=== PATIENT | female | born 1985 | race Caucasian/White ===

== ENCOUNTER 2016-07-01 21:33 | Emergency (ER) | payer MEDICAID ==
[~2016-07-01] VITALS: Ht 151.8 cm; Wt 92.4 kg
[~2016-07-01 21:33] MED LIST: ACET-2723 PO; ASPI1TAB72 PO; BENZ200C36 PO; BUSP7.5T7 PO; CITA20TA9 PO; MELA3TAB30 PO; TERB250T4 PO; VARE0.5T PO
--- OUTSIDE RECORDS SUMMARY | 2016-07-01 21:37 | XMS REPORT | Continuity of Care Document ---
Author Author [facility] Organization [facility] Address Unknown Phone Unavailable Care Team Providers Care Regulatory Affairs Associate Name Role Phone SHASHANK JAMISON DO Primary Care Physician [phone] Insurance Providers Guarantor Romero Springer Dior Address [address] [place] [address] Email [email or web address] Payer [facility] Community Plan Policy Number [id number] Subscriber's Name Romero Springer Relationship 18 Self Effective Date 16 Expiration Date 16 Advance Directives Directive Response Recorded Date/Time Ordered Resuscitation Status Full Code 03/04/16 2:15pm Resuscitation Documents on File No 03/05/16 9:43am DPOA for Healthcare Only No 03/05/16 9:43am Living Will No 03/05/16 9:43am Problems Active Problems Medical Problem Onset Date Status Abdominal pain Unknown Acute Medications Current Home Medications Medication Dose Units Route Directions Days Qty Instructions Start Date Acetaminophen (Tylenol Extra Strength) 500 Mg Tablet 1-2 Tab Oral Every 6 Hours as needed for Pain/Fever 03/04/16 Aspirin/Acetaminophen/Caffeine (Excedrin Extra Strength Caplet) 1 Each Tablet 2 Tab Oral As Needed 09/28/13 Benzonatate 200 Mg Capsule 1 Cap Oral Three Times A Day as needed for Cough DO NOT BITE, CHEW, OR CRUSH 03/04/16 Buspirone Hcl 7.5 Mg Tablet 1 Tab Oral Twice A Day 03/04/16 Citalopram Hydrobromide (Citalopram Hbr) 20 Mg Tablet 40 Mg Oral Daily 09/28/13 Melatonin 3 Mg Tablet 1 Tab Oral Bedtime 30 Tablet 03/04/16 Terbinafine Hcl (Lamisil) 250 Mg Tablet 1 Tab Oral Daily 03/04/16 Varenicline Tartrate (Chantix) 0.5 Mg Tablet 1 Tab Oral Twice A Day 03/04/16 Past Home Medications Medication Directions Ordered Status Albuterol 17 Gm Aerosol, 09/22/08 Discontinued Cephalexin Monohydrate (Keflex) 250 Mg Capsule, 09/22/08 Discontinued Fluoxetine Hcl (Prozac) 20 Mg Capsule, 20 Mg Oral 05/21/09 Discontinued Vits W-Ca,Fe,Fa(<1MG) ( Vitamins) 1 Tab Tablet, 1 Tab Oral 05/21/09 Discontinued Social History Social History Problem Response Recorded Date/Time Onset Date Status Reason for Hospitalization colonoscopy, hemerrhoid banding 03/05/2016 12: 25pm Not Applicable Not Applicable Chewing Tobacco Status No 05/24/2013 10:45pm Not Applicable Not Applicable Hx Substance Use No 03/05/2016 9:53am Not Applicable Not Applicable Hx Alcohol Use No 03/05/2016 9:53am Not Applicable Not Applicable Has the pt used tobacco in the last 12 months Yes 03/05/2016 9:53am Not Applicable Not Applicable Query Response Start Date Stop Date Smoking Status Current every day smoker Hospital Discharge Instructions Instructions: Care Instructions: I was in the hospital because (patient own words): COLONOSCOPY Discharge Diet: As Tolerated Discharge Activity: Do NOT drive today Follow Up Appointments: Follow up with Dr. Valderrama as needed. Pending Lab / Results: Will be notified Patient Instructions: If biopsies performed during colonoscopy, results/recommendations will be mailed in about 2-3 weeks. If biopsies performed during EGD, results/recommendations will be mailed in about 1 week. Expected Signs/Symptoms: None Notify Physician If: Call physician if temperature is GREATER than 101.5, severe abdominal pain or severe rectal bleeding. During Business Hours:: Call [phone] After Business Hours:: Call [phone] (hospital) Pain Management/Treatment: Call Dr. Valderrama if increasing abdominal pain Wound/Incision Care: N/A Condition at time of discharge: Good Plan of Care Discharge Date 03/05/16 12:40pm Instructions/Education Provided [facility] Prescriptions See Medication Section Functional Status Query Response Date Recorded Ability to complete ADL's impeded by No change March 05, 2016 9:43am Allergies, Adverse Reactions, Alerts Allergen Type Severity Reaction Status Last Updated No Known Drug Allergies Allergy Unknown Active 05/24/13 Immunizations Query Response on File Recorded Date/Time Hx Influenza Vaccination Y NOV 2015 03/05/16 9:53am Hx Pneumococcal Vaccination No 03/05/16 9:53am Hx Influenza Vaccination Y NOV 2015 03/05/16 9:53am Vital Signs Acute Vital Signs Vital Response Date/Time Temperature (Fahrenheit) 97.8 deg F (96.8 - 99.1) 03/05/2016 11:56am Temperature (Calculated Celsius) 36.90403 degrees C (36.0 - 37.3) 03/05/2016 11:56am Temperature Source Temporal 03/05/2016 11:56am Pulse Rate (adult) 68 bpm (60 - 100) 03/05/2016 12:35pm Respiratory Rate 20 breaths/min (10 - 20) 03/05/2016 12:35pm O2 Sat by Pulse Oximetry 98 % (90 - 100) 03/05/2016 12:35pm Oxygen Delivery Method Room Air 03/05/2016 12:35pm Blood Pressure 121/88 mm Hg 03/05/2016 12:35pm Blood Pressure Source Automatic Cuff 03/05/2016 12:35pm Height (Feet) 4 feet 03/05/2016 9:20am Height (Inches) 11.00 inches 03/05/2016 9:20am Weight (Kilograms) 88.800 kg 03/05/2016 9:20am Body Mass Index (BMI) 39.5 03/05/2016 9:20am Results No known relevant diagnostic tests, laboratory data and/or discharge summary. Procedures Procedure Status Date Provider(s) Colonoscopy with polypectomy and biopsy Completed 03/05/16 AURORA VALDERRAMA MD, FACS, CWS Encounters Encounter Location Arrival/Admit Date Discharge/Depart Date Attending Provider Departed [facility] 03/05/16 8:51am 03/05/16 12 :40pm AURORA VALDERRAMA FACSS
--- OUTSIDE RECORDS SUMMARY | 2016-07-01 21:37 | XMS REPORT | Referral Summary ---
Author Author [facility] Organization [facility] Address Unknown Phone Unavailable Care Team Providers Care Sports Broadcasting Internship Name Role Phone George Degroot Primary Care Physician [phone] Encounter VC Date(s): 03/16/16 - 03/16/16 [facility] [address] [place] [address] Discharge Disposition: 01-Home or Self Care Attending Physician: Kel Lieberman APRN Admitting Physician: Kel Lieberman APRN Vital Signs Most recent to 1 oldest [Reference Range]: Temperature Tympanic 36.9 degC [36.6-38.1 degC] (03/16/16 4:01 PM) Peripheral Pulse 77 bpm Rate [60-100 bpm] (03/16/16 4:01 PM) Respiratory Rate 16 br/min [14-20 br/min] (03/16/16 4:01 PM) Blood Pressure 110/70 mmHg [90-140/60-90 mmHg] (03/16/16 4:01 PM) SpO2 97 % (03/16/16 4:01 PM) Problem List Condition Effective Dates Status Health Status Informant Anxiety(Confirmed) Resolved Pap 07/23/06 Active Smear(Confirmed)1 Carpal tunnel Active syndrome(Confirmed) Depression(Confirmed Resolved ) Gall bladder Resolved disease(Confirmed) High Resolved cholesterol(Confirme d) Irritable bowel Resolved disease(Confirmed) Migraine Resolved headache(Confirmed) Obesity(Confirmed) Active patient 1See Conversion Document Allergies, Adverse Reactions, Alerts No Known Medication Allergies Medications busPIRone 7.5 mg oral tablet 7.5 mg 1 tabs, Oral, BID, 0 Refill(s) Start Date: 02/28/16 Status: Ordered CeleXA 20 mg oral tablet 40 mg 2 tabs, Oral, Daily, 1 tab daily for 1 week then increase to 2 tabs daily , # 180 tabs, 1 Refill(s), Pharmacy: [facility] #[id number], 2 tabs Oral Daily ,x90 days,Instr:1 tab daily for 1 week then increase to 2 tabs daily Start Date: 03/14/15 Stop Date: 09/10/15 Status: Ordered Chantix Starter Pack 0.5 mg-1 mg oral tablet 1 tabs, Oral, BID, as directed on package labeling, # 53 tabs, 1 Refill(s), Pharmacy: [facility] #[id number] Start Date: 01/30/16 Status: Ordered Excedrin Extra Strength 1 tabs, Oral, q6hr, Pain, 0 Refill(s) Start Date: 07/28/13 Status: Ordered LamISIL 1 tabs, Oral, Daily, 0 Refill(s) Start Date: 02/28/16 Status: Ordered melatonin 3 mg oral tablet 3 mg 1 tabs, Oral, Bedtime (once a day), as needed for insomnia, # 60 tabs, 0 Refill(s) Start Date: 02/28/16 Status: Ordered predniSONE 10 mg oral tablet See Instructions, 3 tabs PO daily x3 days, 2 tabs PO daily x3 days, 1 tabs Oral Daily x3 days with food, # 18 tabs, 0 Refill(s), Pharmacy: [facility] # [id number], 3 tabs PO daily x3 days, 2 tabs PO daily x3 days, 1 tabs Oral Daily x3 days with food Start Date: 03/16/16 Stop Date: 03/23/16 Status: Ordered Tylenol Extra Strength 500 mg, Oral, q6hr, as needed for pain, 0 Refill(s) Start Date: 07/28/13 Status: Ordered Results No data available for this section Immunizations Given and Recorded Vaccine Date Status Refusal Reason influenza virus vaccine, inactivated 10/31/15 Given Procedures Procedure Date Related Diagnosis Body Site Colonoscopy and biopsy of colon1 03/05/16 Hx of tubal ligation 2015 Caesarean section 2010 Cholecystectomy 2008 Pap Smear2 07/23/06 1Biopsies negative for colitis. Banded internal hemorrhoid which is the likely cause of bleeding. Repeat colonoscopy at age 50 2See Conversion Document. Social History Social History Type Response Smoking Status Current some day smoker; Type: Cigarettes; Tobacco use per day: Less than Pack Assessment and Plan No data available for this section
--- OUTSIDE RECORDS SUMMARY | 2016-07-01 21:37 | XMS REPORT | Referral Summary ---
Author Author [facility] Organization [facility] Address Unknown Phone Unavailable Care Team Providers Care Marketing Automation Specialist Name Role Phone George Degroot Primary Care Physician [phone] Encounter VC Date(s): 02/28/16 - 02/28/16 [facility] [address] [place] [address] [place] [address] Discharge Diagnosis: Blood in stool Discharge Diagnosis: Rectal bleeding Discharge Disposition: 01-Home or Self Care Attending Physician: Darrius Guthrie MD Admitting Physician: Darrius Guthrie MD Referring Physician: George Degroot DO Vital Signs Most recent to 1 oldest [Reference Range]: Peripheral Pulse 76 bpm Rate [60-100 bpm] (02/28/16 1:34 PM) Respiratory Rate 18 br/min [14-20 br/min] (02/28/16 1:34 PM) Blood Pressure 108/66 mmHg [90-140/60-90 mmHg] (02/28/16 1:34 PM) SpO2 98 % (02/28/16 1:34 PM) Problem List Condition Effective Dates Status [...] , # 180 tabs, 1 Refill(s), Pharmacy: [facility] #[id number], 2 tabs Oral Daily ,x90 days,Instr:1 tab daily for 1 week then increase to 2 tabs daily Start Date: 03/14/15 Stop Date: 09/10/15 Status: Ordered Chantix Starter Pack 0.5 mg-1 mg oral tablet 1 tabs, Oral, BID, as directed on package labeling, # 53 tabs, 1 Refill(s), Pharmacy: [facility] #[id number] Start Date: 01/30/16 Status: Ordered Excedrin Extra Strength 1 tabs, Oral, q6hr, Pain, 0 Refill(s) Start Date: 07/28/13 Status: Ordered LamISIL 1 tabs, Oral, Daily, 0 Refill(s) Start Date: 02/28/16 Status: Ordered melatonin 3 mg oral tablet 3 mg 1 tabs, Oral, Bedtime (once a day), as needed for insomnia, # 60 tabs, 0 Refill(s) Start Date: 02/28/16 Status: Ordered Tessalon 200 mg oral capsule 200 mg 1 caps, Oral, TID, X 10 days, # 30 caps, 0 Refill(s), Pharmacy: [facility] #[id number], 1 caps Oral TID,x10 days Start Date: 02/20/16 Stop Date: 03/01/16 Status: Ordered Tylenol Extra Strength 500 mg, Oral, q6hr, as needed for pain, 0 Refill(s) Start Date: 07/28/13 Status: Ordered Results No data available for this section Immunizations Given and Recorded Vaccine Date Status Refusal Reason influenza virus vaccine, inactivated 10/31/15 Given Procedures Procedure Date Related Diagnosis Body Site Hx of tubal ligation 2015 Caesarean section 2010 Cholecystectomy 2008 Pap Smear1 07/23/06 1See Conversion Document. Social History Social History Type Response Smoking Status Current some day smoker; Type: Cigarettes; Tobacco use per day: Less than Pack Assessment and Plan Extracted from: Title: Ambulatory Patient Education Author: Darrius Guthrie MD Date: Family Medicine Gastrointestinal Bleeding Gastrointestinal (GI) bleeding means there is bleeding somewhere along the digestive tract, between the mouth and anus. CAUSES There are many different problems that can cause GI bleeding. Possible causes include: Esophagitis. This is inflammation, irritation, or swelling of the esophagus. Hemorrhoids.These are veins that are full of blood (engorged) in the rectum. They cause pain, inflammation, and may bleed. Anal fissures.These are areas of painful tearing which may bleed. They are often caused by passing hard stool. Diverticulosis.These are pouches that form on the colon over time, with age, and may bleed significantly. Diverticulitis.This is inflammation in areas with diverticulosis. It can cause pain, fever, and bloody stools, although bleeding is rare. Polyps and cancer. Colon cancer often starts out as precancerous polyps. Gastritis and ulcers.Bleeding from the upper gastrointestinal tract ( near the stomach) may travel through the intestines and produce black, sometimes tarry, often bad smelling stools. In certain cases, if the bleeding is fast enough, the stools may not be black, but red. This condition may be life -threatening. SYMPTOMS Vomiting bright red blood or material that looks like coffee grounds. Bloody, black, or tarry stools. DIAGNOSIS Your caregiver may diagnose your condition by taking your history and performing a physical exam. More tests may be needed, including: X-rays and other imaging tests. Esophagogastroduodenoscopy (EGD). This test uses a flexible, lighted tube to look at your esophagus, stomach, and small intestine. Colonoscopy. This test uses a flexible, lighted tube to look at your colon. TREATMENT Treatment depends on the cause of your bleeding. For bleeding from the esophagus, stomach, small intestine, or colon, the caregiver doing your EGD or colonoscopy may be able to stop the bleeding as part of the procedure. Inflammation or infection of the colon can be treated with medicines. Many rectal problems can be treated with creams, suppositories, or warm baths. Surgery is sometimes needed. Blood transfusions are sometimes needed if you have lost a lot of blood. If bleeding is slow, you may be allowed to go home. If there is a lot of bleeding, you will need to stay in the hospital for observation. HOME CARE INSTRUCTIONS Take any medicines exactly as prescribed. Keep your stools soft by eating foods that are high in fiber. These foods include whole grains, legumes, fruits, and vegetables. Prunes (1 to 3 a day) work well for many people. Drink enough fluids to keep your urine clear or pale yellow. SEEK IMMEDIATE MEDICAL CARE IF: Your bleeding increases. You feel lightheaded, weak, or you faint. You have severe cramps in your back or abdomen. You pass large blood clots in your stool. Your problems are getting worse. MAKE SURE YOU: Understand these instructions. Will watch your condition. Will get help right away if you are not doing well or get worse. This information is not intended to replace advice given to you by your health care provider. Make sure you discuss any questions you have with your health care provider. Document Released: 01/29/2001 Document Revised: 01/18/2013 Document Reviewed: [employer] Interactive Patient Education 2016 [employer] No follow up information was provided. Extracted from: Title: Office Visit Note Author: Darrius Guthrie MD Date: 02/28/16 Assessment/Plan 1.Rectal bleeding Ordered: Office Visit Level 4 New [address] Plan:Colonoscopy with rectal exam under anesthesia, possible hemorrhoid banding. I did review the patient's chart includingoffice noteperformed by her PCP from January 30, 2016. I informed the patient that I would recommend that we proceed with colonoscopy for further evaluationof her rectal bleeding and diarrhea. I informed the patient that if her colon looksnormal endoscopically would likelyalsoproceed with some random biopsies during her colonoscopy rule in or rule out the process of microscopic colitis. Also informed patient that we would perform a rectal examination under anesthesia the time of her colonoscopyand if she was found to have prominent internal hemorrhoids we mayproceed withbanding of internal hemorrhoids as indicated. Risk of endoscopyand hemorrhoidal banding was discussed with the patient. Risks include but are not inclusive of bleeding, infection and/or perforation requiring surgery. Patient understood and was scheduled.
--- OUTSIDE RECORDS SUMMARY | 2016-07-01 21:37 | XMS REPORT | Continuity of Care Document ---
Author Author [facility] Organization [facility] Address Unknown Phone Unavailable Care Team Providers Care Senior Major Gifts Officer Name Role Phone GRIS BURROUGHS MD Primary Care Physician [phone] Insurance Providers Payer Name Policy Number Subscriber Name Relationship [facility] [id number] Romero Springer 18 Self Advance Directives Directive Response Recorded Date/Time Ordered Resuscitation Status Full Code 09/28/13 2:30pm Problems Medical Problems Problem Onset Date Status Abdominal pain Unknown Active Medications Medication Dose Route Sig Days/Qty Instructions Order Date Discontinued Date Status Albuterol 09/22/08 05/13/09 Discontinued Cephalexin Monohydrate 09/22/08 05/13/09 Discontinued Fluoxetine Hcl 20 Mg PO 05/21/09 02/05/10 Discontinued Vits W-Ca,Fe,Fa(<1MG) 1 Tab PO 05/21/09 02/05/10 Discontinued Meloxicam 15 Mg PO DAILY 09/28/13 Active Cyclobenzaprine HCl 10 Mg PO NEEDED 09/28/13 Active Tramadol HCl 50 Mg PO TWICE A DAY 09/28/13 Active Citalopram Hydrobromide 40 Mg PO DAILY 09/28/13 Active Aspirin/Acetaminophen/Caffeine 2 Tab PO NEEDED 09/28/13 Active Social History Social History Problem Response Recorded Date/Time Smoking Status Current every day smoker 05/24/2013 10:45pm When did patient START smoking? AGE 15 09/28/2013 11:45am Chewing Tobacco Status No 05/24/2013 10:45pm Hx Substance Use No 05/24/2013 10:45pm Hx Alcohol Use Y RARELY 05/24/2013 10:45pm Has the pt used tobacco in the last 12 months Yes 09/28/2013 11:45am Hospital Discharge Instructions No hospital discharge instructions. Plan of Care No plan of care. Functional Status No functional status results. Allergies, Adverse Reactions, Alerts Allergen Type Severity Reaction Status Last Updated No Known Drug Allergies Allergy Unknown Active 05/24/13 Immunizations Name Given Type Hx Influenza Vaccination N GOT H1N1 Historical Hx Pneumococcal Vaccination No Historical Hx Influenza Vaccination N GOT H1N1 Historical Vital Signs Acute Vital Signs Vital Response Date/Time Temperature (Fahrenheit) 97.4 deg F (96.8 - 99.1) Temperature (Calculated Celsius) 36.54417 degrees C (36.0 - 37.3) Temperature Source Temporal Pulse Rate (adult) 64 bpm (60 - 100) Respiratory Rate 16 breaths/min (10 - 20) O2 Sat by Pulse Oximetry 96 % (90 - 100) Oxygen Delivery Method Room Air Blood Pressure 119/62 mm Hg Blood Pressure Source Automatic Cuff Height 5 ft 0 in Weight 183 lb Body Mass Index 35.0 kg/m^2 Results Test Source Date Result Interp. Ref. Range Comments Alanine Aminotransferase (ALT/SGPT) May 24, 2013 10:45pm 28 U/L N 9- 52 Albumin May 24, 2013 10:45pm 4.0 G/DL N 3.5-5.0 Albumin/Globulin Ratio May 24, 2013 10:45pm 1.4 RATIO N 1.1-2.2 Alkaline Phosphatase May 24, 2013 10:45pm 76 U/L N 38-126 Amylase Level May 24, 2013 10:45pm 43 U/L N 30-110 Anion Gap May 24, 2013 10:45pm 13 MEQ/L N 5-15 Aspartate Amino Transf (AST/SGOT) May 24, 2013 10:45pm 18 U/L N 14-36 BUN/Creatinine Ratio May 24, 2013 10:45pm 9 RATIO N 6-26 Band Neutrophils # April 03, 2008 1:09pm 0.0 T/MM3 - Band Neutrophils % April 03, 2008 1:09pm 1.0 % N 0-6 Basophils # (Auto) May 24, 2013 10:45pm 0.0 T/MM3 N 0-0.2 Basophils # (Manual) April 03, 2008 1:09pm 0.0 T/MM3 N 0-0.2 Basophils % (Manual) April 03, 2008 1:09pm 0.0 % N 0-2 Basophils (%) (Auto) May 24, 2013 10:45pm 0.4 % N 0-2 Blood Urea Nitrogen May 24, 2013 10:45pm 7.0 MG/DL N 7-17 Calcium Level May 24, 2013 10:45pm 8.8 MG/DL N 8.4-10.2 Calculated Osmolality May 24, 2013 10:45pm 272 MOSM/KG N 261-280 Carbon Dioxide Level May 24, 2013 10:45pm 21 MEQ/L L 22-30 Chemistry Specimen Hemolysis May 24, 2013 10:45pm < 15 0-25 0-25: No Hemolysis.26-70: Slight Hemolysis - can falsely elevate K and Urine Protein. 71-285: Moderate Hemolysis - can falsely elevate K, Troponin I, CA 19-9, PTH, CSF GLucose, and Urine Protein, and can falsely decrease Phenytoin. 286-999: Gross Hemolysis - can falsely elevate K, Troponin I, CA 19-9, PTH, CSF Glucose, and Urine Protine, and can falsely decrease Phenytoin. Recommend specimen recollection. Chlamydia trachomatis Amplified DNA May 25, 2010 7:21pm Ref lab rpt scanned - --- 05/27/10 1310 ---CHLAMDNA previously reported as: SENT OUT Chloride Level May 24, 2013 10:45pm 109 MEQ/L H 98-107 Cholesterol Level July 02, 2011 5:20pm 207 MG/DL H 132-199 Cholesterol/HDL Ratio July 02, 2011 5:20pm 5.9 RATIO H 0-4.0 Conjugated Bilirubin August 02, 2011 5:04am 0.00 MG/DL N 0.00-0.30 Creatinine May 24, 2013 10:45pm 0.8 MG/DL N 0.7-1.2 D-Dimer August 02, 2011 5:04am < 150 NG/ML 0-230 <224 NG/ML= PRESUMPTIVE NEGATIVE FOR PE OR DVT>224 NG/ML=ADDITIONAL EVALUATION FOR PE OR DVT RECOMMENDED Eosinophils # (Auto) May 24, 2013 10:45pm 0.1 T/MM3 N 0-0.5 Eosinophils # (Manual) April 03, 2008 1:09pm 0.0 T/MM3 N 0-0.5 Eosinophils % (Manual) April 03, 2008 1:09pm 0.0 % N 0-4 Eosinophils (%) (Auto) May 24, 2013 10:45pm 1.3 % N 0-4 Globulin May 24, 2013 10:45pm 2.9 G/DL N 2.4-3.6 Glomerular Filtration Rate Calc May 24, 2013 10:45pm 86 - Glucose Level May 24, 2013 10:45pm 84 MG/DL N 65-110 HDL Cholesterol Direct July 02, 2011 5:20pm 35 MG/DL L 40-60 Hematocrit September 29, 2013 6:23am 37.9 % N 36-46 Hemoglobin September 29, 2013 6:23am 13.0 GM/DL N 12-16 Hepatitis A IgM Antibody April 19, 2008 2:53pm Negative - Hepatitis B Core IgM Antibody April 19, 2008 2:53pm Negative - Hepatitis B Surface Antigen April 19, 2008 2:53pm Negative - Hepatitis C Antibody April 19, 2008 2:53pm Negative - Icterus Index May 24, 2013 10:45pm < 2 0-7 Immature Granulocyte # (Auto) May 24, 2013 10:45pm 0.01 T/MM3 N 0.00- 0.03 Immature Granulocyte % (Auto) May 24, 2013 10:45pm 0.1 % N 0.0-0.5 LDL Cholesterol, Calculated July 02, 2011 5:20pm 172 H 66-159 Lab Scanned Report May 09, 2013 3:07pm REFERENCE LAB [id number] - Lipase May 24, 2013 10:45pm 147 U/L N 23-300 Lymphocytes # (Auto) May 24, 2013 10:45pm 2.7 T/MM3 N 1-4.8 Lymphocytes # (Manual) April 03, 2008 1:09pm 1.9 T/MM3 N 1-4.8 Lymphocytes % (Manual) April 03, 2008 1:09pm 42.0 % N 23-45 Lymphocytes (%) (Auto) May 24, 2013 10:45pm 32.3 % N 23-45 Mean Corpuscular Hemoglobin September 29, 2013 6:23am 30.2 UUG N 26-34 Mean Corpuscular Hemoglobin Concent September 29, 2013 6:23am 34.3 GM/DL N 31-37 Mean Corpuscular Volume September 29, 2013 6:23am 87.9 UM3 N 80-100 Mean Platelet Volume September 29, 2013 6:23am 9.7 UM3 N 9.4-12.4 Monocytes # (Auto) May 24, 2013 10:45pm 0.6 T/MM3 N 0-0.8 Monocytes # (Manual) April 03, 2008 1:09pm 0.5 T/MM3 N 0-0.8 Monocytes % (Manual) April 03, 2008 1:09pm 10.0 % H 0-9.0 Monocytes (%) (Auto) May 24, 2013 10:45pm 7.1 % N 0-9.0 QF-Wim-A-Type Natriuretic Peptide August 02, 2011 5:04am 42 PG/ML N 0-175 Rule in cut points: <50 years old=450; 50-75 years old=900; >75 years old=1800; When utilizing ProBNP rule-in cut points, adjustment for impaired renal function is typically not required. Neutrophils # (Auto) May 24, 2013 10:45pm 4.9 T/MM3 N 1.8-7.7 Neutrophils # (Manual) April 03, 2008 1:09pm 2.1 T/MM3 N 1.8-7.7 Neutrophils % (Manual) April 03, 2008 1:09pm 47.0 % N 33-66 Neutrophils (%) (Auto) May 24, 2013 10:45pm 58.8 % N 33-66 Platelet Count September 29, 2013 6:23am 241 T/MM3 N 130-400 Potassium Level May 24, 2013 10:45pm 3.7 MEQ/L N 3.6-5 RDW Standard Deviation September 29, 2013 6:23am 39.7 FL N 36.9-50.2 Red Blood Count September 29, 2013 6:23am 4.31 M/MM3 N 4.00-5.20 Sodium Level May 24, 2013 10:45pm 143 MEQ/L N 134-144 Thyroid Stimulating Hormone (TSH) July 02, 2011 5:20pm 2.25 MIU/L N 0.47- 4.68 Total Bilirubin May 24, 2013 10:45pm 0.30 MG/DL N 0.20-1.30 Total Protein May 24, 2013 10:45pm 6.9 G/DL N 6.3-8.2 Triglycerides Level July 02, 2011 5:20pm 447 MG/DL H 35-135 Troponin I August 02, 2011 5:04am < 0.012 ng/ml 0-0.12 Turbidity May 24, 2013 10:45pm < 20 0-20 Unconjugated Bilirubin August 02, 2011 5:04am 0.00 MG/DL N 0.00-1.10 Urine Bacteria May 24, 2013 11:15pm None seen - Has specimen been collected/obtained? Y Urine Bilirubin May 24, 2013 11:15pm Negative - Has specimen been collected/obtained? Y Urine Blood May 24, 2013 11:15pm 1+ H - Has specimen been collected/ obtained? Y Urine Collection Type May 24, 2013 11:15pm Cleancatch-midstream - Has specimen been collected/obtained? Y Urine Color May 24, 2013 11:15pm Yellow - Has specimen been collected/obtained? Y Urine Glucose (UA) May 24, 2013 11:15pm Negative - Has specimen been collected/obtained? Y Urine Ketones May 24, 2013 11:15pm Negative - Has specimen been collected/obtained? Y Urine Leukocyte Esterase May 24, 2013 11:15pm 1+ H - Has specimen been collected/obtained? Y Urine Microscopic Not Indicated May 25, 2010 7:45pm Not indicated - Has specimen been collected/obtained? Y Urine Nitrite May 24, 2013 11:15pm Negative - Has specimen been collected/obtained? Y Urine Protein May 24, 2013 11:15pm Negative - Has specimen been collected/obtained? Y Urine RBC May 24, 2013 11:15pm 1-3 /HPF - Has specimen been collected/obtained? Y Urine Specific [place] May 24, 2013 11:15pm 1.010 L - Has specimen been collected/obtained? Y Urine Squamous Epithelial Cells May 24, 2013 11:15pm 10-20 - Has specimen been collected/obtained? Y Urine Turbidity May 24, 2013 11:15pm Clear - Has specimen been collected/obtained? Y Urine Urobilinogen May 24, 2013 11:15pm 0.2 EU/DL - Has specimen been collected/obtained? Y Urine WBC May 24, 2013 11:15pm 5-10 /HPF H - Has specimen been collected/obtained? Y Urine pH May 24, 2013 11:15pm 6.0 - Has specimen been collected/ obtained? Y VLDL Cholesterol July 02, 2011 5:20pm 89.4 MG/DL H 0-28 White Blood Count September 29, 2013 6:23am 7.3 T/MM3 N 4.5-11.0 Wet Prep Cervix May 25, 2010 7:21pm Procedures Procedure Status Date Provider(s) Laparoscopic tubal ligation completed 09/29/13 KATHRYN HOLT MD Encounters Encounter Location Date/Time Registered Clinic [facility] 09/20/13 9:28am
--- OUTSIDE RECORDS SUMMARY | 2016-07-01 21:38 | XMS REPORT | Referral Summary ---
Author Author [facility], [facility] Care Organization [facility] Address Unknown Phone Unavailable Care Team Providers Care Wood Turner Name Role Phone George Degroot Primary Care Physician [phone] Encounter Date(s): 12/13/15 - 12/13/15 [facility] [address] [place] [id number] Discharge Diagnosis: Gastroenteritis Discharge Disposition: 01-Home or Self Care Attending Physician: Haroon Rojo PA-C Admitting Physician: Haroon Rojo PA-C Vital Signs Most recent to 1 oldest [Reference Range]: Temperature Tympanic 36.8 degC [36.6-38.1 degC] (12/13/15 2:49 PM) Peripheral Pulse 90 bpm Rate [60-100 bpm] (12/13/15 2:49 PM) Blood Pressure 124/78 mmHg [90-140/60-90 mmHg] (12/13/15 2:49 PM) SpO2 97 % (12/13/15 2:49 PM) Problem List Condition Effective Dates Status Health Status Informant Anxiety(Confirmed) Resolved Pap 07/23/06 Active Smear(Confirmed)1 Carpal tunnel Active syndrome(Confirmed) Depression(Confirmed Resolved ) Gall bladder Resolved disease(Confirmed) High Resolved cholesterol(Confirme d) Irritable bowel Resolved disease(Confirmed) Migraine Resolved headache(Confirmed) Obesity(Confirmed) Active patient 1See Conversion Document Allergies, Adverse Reactions, Alerts No Known Medication Allergies Medications busPIRone 7.5 mg oral tablet See Instructions, TAKE ONE TABLET BY MOUTH TWICE A DAY, # 30 tabs, eRx: [facility] #[id number], TAKE ONE TABLET BY MOUTH TWICE A DAY Start Date: 12/10/15 Status: Ordered CeleXA 20 mg oral tablet 40 mg 2 tabs, Oral, Daily, 1 tab daily for 1 week then increase to 2 tabs daily , # 180 tabs, 1 Refill(s), Pharmacy: [facility] #[id number], 2 tabs Oral Daily ,x90 days,Instr:1 tab daily for 1 week then increase to 2 tabs daily Start Date: 03/14/15 Stop Date: 09/10/15 Status: Ordered Excedrin Extra Strength 1 tabs, Oral, q6hr, Pain, 0 Refill(s) Start Date: 07/28/13 Status: Ordered Tylenol Extra Strength 500 mg, Oral, q6hr, as needed for pain, 0 Refill(s) Start Date: 07/28/13 Status: Ordered Results No data available for this section Immunizations Vaccine Date Refusal Reason influenza virus vaccine, inactivated 10/31/15 Procedures Procedure Date Related Diagnosis Body Site Pap Smear1 07/23/06 1See Conversion Document. Social History Social History Type Response Smoking Status Current some day smoker; Type: Cigarettes; Tobacco use per day: Less than Pack Assessment and Plan Extracted from: Title: Ambulatory Patient Education Author: Haroon Rojo PA-C Date: 12/13/15 Home Health Care Food Choices to Help Relieve Diarrhea, Adult When you have diarrhea, the foods you eat and your eating habits are very important. Choosing the right foods and drinks can help relieve diarrhea. Also, because diarrhea can last up to 7 days, you need to replace lost fluids and electrolytes (such as sodium, potassium, and chloride) in order to help prevent dehydration. WHAT GENERAL GUIDELINES DO I NEED TO FOLLOW? Slowly drink 1 cup (8 oz) of fluid for each episode of diarrhea. If you are getting enough fluid, your urine will be clear or pale yellow. Eat starchy foods. Some good choices include white rice, white toast, pasta, low-fiber cereal, baked potatoes (without the skin), saltine crackers, and bagels. Avoid large servings of any cooked vegetables. Limit fruit to two servings per day. A serving is cup or 1 small piece. Choose foods with less than 2 g of fiber per serving. Limit fats to less than 8 tsp (38 g) per day. Avoid fried foods. Eat foods that have probiotics in them. Probiotics can be found in certain dairy products. Avoid foods and beverages that may increase the speed at which food moves through the stomach and intestines (gastrointestinal tract). Things to avoid include: High-fiber foods, such as dried fruit, raw fruits and vegetables, nuts, seeds, and whole grain foods. Spicy foods and high-fat foods. Foods and beverages sweetened with high-fructose corn syrup, honey, or sugar alcohols such as xylitol, sorbitol, and mannitol. WHAT FOODS ARE RECOMMENDED? Grains White rice. White, [place]ese, or valentín breads (fresh or toasted), including plain rolls, buns, or bagels. White pasta. Saltine, soda, or david crackers. Pretzels. Low-fiber cereal. Cooked cereals made with water (such as cornmeal, farina, or cream cereals). Plain muffins. Matzo. [place] toast. Zwieback. Vegetables Potatoes (without the skin). Strained tomato and vegetable juices. Most well- cooked and canned vegetables without seeds. Tender lettuce. Fruits Cooked or canned applesauce, apricots, cherries, fruit cocktail, grapefruit, peaches, pears, or plums. Fresh bananas, apples without skin, cherries, grapes, cantaloupe, grapefruit, peaches, oranges, or plums. Meat and Other Protein Products Baked or boiled chicken. Eggs. Tofu. Fish. Seafood. Smooth peanut butter. Ground or well-cooked tender beef, ham, veal, martinez, pork, or poultry. Dairy Plain yogurt, kefir, and unsweetened liquid yogurt. Lactose-free milk, buttermilk, or soy milk. Plain hard cheese. Beverages Sport drinks. Clear broths. Diluted fruit juices (except prune). Regular, caffeine-free sodas such as moncho aristeo. Water. Decaffeinated teas. Oral rehydration solutions. Sugar-free beverages not sweetened with sugar alcohols. Other Bouillon, broth, or soups made from recommended foods. The items listed above may not be a complete list of recommended foods or beverages. Contact your dietitian for more options. WHAT FOODS ARE NOT RECOMMENDED? Grains Whole grain, whole wheat, bran, or rye breads, rolls, pastas, crackers, and cereals. Wild or brown rice. Cereals that contain more than 2 g of fiber per serving. [place] tortillas or taco shells. Cooked or dry oatmeal. Granola. Popcorn. Vegetables Raw vegetables. Cabbage, broccoli, [place] sprouts, artichokes, baked beans, beet greens, corn, kale, legumes, peas, sweet potatoes, and yams. Potato skins. Cooked spinach and cabbage. Fruits Dried fruit, including raisins and dates. Raw fruits. Stewed or dried prunes. Fresh apples with skin, apricots, mangoes, pears, raspberries, and strawberries. Meat and Other Protein Products [place] peanut butter. Nuts and seeds. Beans and lentils. Angel. Dairy High-fat cheeses. Milk, chocolate milk, and beverages made with milk, such as milk shakes. Cream. Ice cream. Sweets and Desserts Sweet rolls, doughnuts, and sweet breads. Pancakes and waffles. Fats and Oils Butter. Cream sauces. Margarine. Salad oils. Plain salad dressings. Olives. Avocados. Beverages Caffeinated beverages (such as coffee, tea, soda, or energy drinks). Alcoholic beverages. Fruit juices with pulp. Prune juice. Soft drinks sweetened with high- fructose corn syrup or sugar alcohols. Other Coconut. Hot sauce. [place] powder. Mayonnaise. Gravy. Cream-based or milk-based soups. The items listed above may not be a complete list of foods and beverages to avoid. Contact your dietitian for more information. WHAT SHOULD I DO IF I BECOME DEHYDRATED? Diarrhea can sometimes lead to dehydration. Signs of dehydration include dark urine and dry mouth and skin. If you think you are dehydrated, you should rehydrate with an oral rehydration solution. These solutions can be purchased at pharmacies, retail stores, or online. Drink 1 cup (598356 mL) of oral rehydration solution each time you have an episode of diarrhea. If drinking this amount makes your diarrhea worse, try drinking smaller amounts more often. For example, drink 13 tsp (5-15 mL) every 510 minutes. A general rule for staying hydrated is to drink 12 L of fluid per day. Talk to your health care provider about the specific amount you should be drinking each day. Drink enough fluids to keep your urine clear or pale yellow. This information is not intended to replace advice given to you by your health care provider. Make sure you discuss any questions you have with your health care provider. Document Released: 04/23/2004 Document Revised: 02/22/2015 Document Reviewed: [employer] Interactive Patient Education 2016 [employer] Dehydration, Adult Dehydration is when you lose more fluids from the body than you take in. Vital organs like the kidneys, brain, and heart cannot function without a proper amount of fluids and salt. Any loss of fluids from the body can cause dehydration. CAUSES Vomiting. Diarrhea. Excessive sweating. Excessive urine output. Fever. SYMPTOMS Mild dehydration Thirst. Dry lips. Slightly dry mouth. Moderate dehydration Very dry mouth. Sunken eyes. Skin does not bounce back quickly when lightly pinched and released. Dark urine and decreased urine production. Decreased tear production. Headache. Severe dehydration Very dry mouth. Extreme thirst. Rapid, weak pulse (more than 100 beats per minute at rest). Cold hands and feet. Not able to sweat in spite of heat and temperature. Rapid breathing. Blue lips. Confusion and lethargy. Difficulty being awakened. Minimal urine production. No tears. DIAGNOSIS Your caregiver will diagnose dehydration based on your symptoms and your exam. Blood and urine tests will help confirm the diagnosis. The diagnostic evaluation should also identify the cause of dehydration. TREATMENT Treatment of mild or moderate dehydration can often be done at home by increasing the amount of fluids that you drink. It is best to drink small amounts of fluid more often. Drinking too much at one time can make vomiting worse. Refer to the home care instructions below. Severe dehydration needs to be treated at the hospital where you will probably be given intravenous (IV) fluids that contain water and electrolytes. HOME CARE INSTRUCTIONS Ask your caregiver about specific rehydration instructions. Drink enough fluids to keep your urine clear or pale yellow. Drink small amounts frequently if you have nausea and vomiting. Eat as you normally do. Avoid: Foods or drinks high in sugar. Carbonated drinks. Juice. Extremely hot or cold fluids. Drinks with caffeine. Fatty, greasy foods. Alcohol. Tobacco. Overeating. Gelatin desserts. Wash your hands well to avoid spreading bacteria and viruses. Only take [id number] or prescription medicines for pain, discomfort , or fever as directed by your caregiver. Ask your caregiver if you should continue all prescribed and over-the- counter medicines. Keep all follow-up appointments with your caregiver. SEEK MEDICAL CARE IF: You have abdominal pain and it increases or stays in one area (localizes) . You have a rash, stiff neck, or severe headache. You are irritable, sleepy, or difficult to awaken. You are weak, dizzy, or extremely thirsty. SEEK IMMEDIATE MEDICAL CARE IF: You are unable to keep fluids down or you get worse despite treatment. You have frequent episodes of vomiting or diarrhea. You have blood or green matter (bile) in your vomit. You have blood in your stool or your stool looks black and tarry. You have not urinated in 6 to 8 hours, or you have only urinated a small amount of very dark urine. You have a fever. You faint. MAKE SURE YOU: Understand these instructions. Will watch your condition. Will get help right away if you are not doing well or get worse. This information is not intended to replace advice given to you by your health care provider. Make sure you discuss any questions you have with your health care provider. Document Released: 02/01/2006 Document Revised: 04/25/2012 Document Reviewed: [employer] Interactive Patient Education 2016 [employer] No follow up information was provided. Extracted from: Title: diarrhea Author: Haroon Rojo PA-C Date: 12/13/15 Assessment/Plan Gastroenteritis At this time I recommended increase fluid intake. Monitor for fever, dehydration symptoms,blood in stools,and if she develops symptoms follow-up for additional assessment. She continues to have loose stools in another 10 daysfollow-up for reassessment. Work note provided. Patient deniednausea currently,no anti-emetics were provided. Tylenol/Ibuprofen as needed for fever or pain. Recommend supportive care. Rest. Practice good hand hygiene. Increase fluids. FU with PCP if not improving, worsening symptoms, or as needed. Questions were answered. Patient verbalized understanding. Patient left in stable condition. Addendum I reviewed this chart, the patient's medical history, and the by Luciano, Resident's/SUBWAY REPAIR SUPERVISOR's/PA/RN's/PharmD's documented findings, and concur with the assessment and Da Verma plan as above. on December 13, 2015 16:53:02 CDT
--- OUTSIDE RECORDS SUMMARY | 2016-07-01 21:38 | XMS REPORT ---
Author Author [facility], [facility] - Organization Unknown Address Unknown Phone Unavailable Allergies, Adverse Reactions, Alerts * No Latex Allergy. * No IV Contrast Allergy. * No Known Drug Allergies. * No Known Food Allergies. * No Known Allergies. Problems No relevant problems exist. Procedures No relevant procedures performed. Medication Medication reconciliation has not been performed. Results LAB--BEDSIDE TESTING from 09/13/2012 12:13 PMPregnancy Screen, Urine NPT Negative LAB--URINE TESTS from 09/13/2012 12:04 PMAppearance Sl Cloudy Bilirubin Negative (Negative ) Blood Trace A (Negative ) Color Yellow Glucose Negative (Negative ) Ketones, Urine Negative (Negative ) Leukocytes Esterase Pos 2+ A (Negative ) Nitrites Positive A (Negative ) pH, Urine 5.0 (5.0-8.0 ) Protein Trace A (Negative ) Specific [place] 1.015 (1.003-1.030 ) Collection Type: Clean Catch Urobilinogen Negative mg/dL (-<1.0 mg/dL) Bacteria Moderate A RBC 5-10 /HPF A (0-2 /HPF) WBC >50 /HPF A (0-4 /HPF)
--- OUTSIDE RECORDS SUMMARY | 2016-07-01 21:38 | XMS REPORT | Referral Summary ---
Author Author [facility] Organization [facility] Address Unknown Phone Unavailable Care Team Providers Care Video Tape Editor Name Role Phone George Degroot Primary Care Physician [phone] Encounter VC Date(s): 11/29/15 - 11/29/15 [facility], [address] [place] [address] Discharge Disposition: 01-Home or Self Care Attending Physician: Kel Lieberman APRN Admitting Physician: Kel Lieberman APRN Vital Signs Most recent to 1 oldest [Reference Range]: Temperature Tympanic 36.0 degC [36.6-38.1 degC] *LOW* (11/29/15 9:31 AM) Peripheral Pulse 84 bpm Rate [60-100 bpm] (11/29/15 9:31 AM) Respiratory Rate 16 br/min [14-20 br/min] (11/29/15 9:31 AM) Blood Pressure 102/70 mmHg [90-140/60-90 mmHg] (11/29/15 9:31 AM) SpO2 95 % (11/29/15 9:31 AM) Problem List Condition Effective Dates Status Health Status Informant Anxiety(Confirmed) Resolved Pap 07/23/06 Active Smear(Confirmed)1 Carpal tunnel Active syndrome(Confirmed) Depression(Confirmed Resolved ) Gall bladder Resolved disease(Confirmed) High Resolved cholesterol(Confirme d) Irritable bowel Resolved disease(Confirmed) Migraine Resolved headache(Confirmed) Obesity(Confirmed) Active patient 1See Conversion Document Allergies, Adverse Reactions, Alerts No Known Medication Allergies Medications acyclovir 800 mg oral tablet 800 mg 1 tabs, Oral, TID, X 5 days, # 15 tabs, 6 Refill(s), Pharmacy: [facility] #[id number], 1 tabs Oral TID,x5 days Start Date: 10/31/15 Stop Date: 12/05/15 Status: Ordered Bactrim DS 800 mg-160 mg oral tablet 1 tabs, Oral, BID, X 7 days, # 14 tabs, 0 Refill(s), Pharmacy: [facility] #[id number] Start Date: 11/29/15 Stop Date: 12/06/15 Status: Ordered busPIRone 7.5 mg oral tablet 7.5 mg 1 tabs, Oral, BID, # 30 tabs, 0 Refill(s), Pharmacy: [facility] # [id number], 1 tabs Oral BID Start Date: 11/29/15 Status: Ordered CeleXA 20 mg oral tablet 40 mg 2 tabs, Oral, Daily, 1 tab daily for 1 week then increase to 2 tabs daily , # 180 tabs, 1 Refill(s), Pharmacy: [facility] #[id number], 2 tabs Oral Daily ,x90 days,Instr:1 tab daily for 1 week then increase to 2 tabs daily Start Date: 03/14/15 Stop Date: 09/10/15 Status: Ordered Chantix Starter Pack 0.5 mg-1 mg oral tablet 1 tabs, Oral, BID, as directed on package labeling, # 53 tabs, 0 Refill(s), Pharmacy: [facility] #[id number] Start Date: 03/14/15 Status: Ordered Excedrin Extra Strength 1 tabs, Oral, q6hr, Pain, 0 Refill(s) Start Date: 07/28/13 Status: Ordered meloxicam 15 mg oral tablet 15 mg 1 tabs, Oral, Daily, # 30 tabs, 0 Refill(s), Pharmacy: [facility] # [id number], 1 tabs Oral Daily Start Date: 06/12/15 Status: Ordered Tylenol Extra Strength 500 mg, Oral, q6hr, as needed for pain, 0 Refill(s) Start Date: 07/28/13 Status: Ordered Voltaren 1% topical gel 2 g, Topical, QID, # 100 g, 0 Refill(s), Pharmacy: [facility] #[id number] Start Date: 06/12/15 Status: Ordered Results Urinalysis Most recent to 1 oldest [Reference Range]: UA Color Yellow (11/29/15 10:35 AM) UA Appear Sl Cloudy (11/29/15 10:35 AM) UA pH [5.0-8.0] 6.0 (11/29/15 10:35 AM) UA Leuk Est Pos 1+ [Negative] *ABN* (11/29/15 10:35 AM) UA Nitrite Negative [Negative] (11/29/15 10:35 AM) UA Protein Negative [Negative] (11/29/15 10:35 AM) UA Glucose Negative [Negative] (11/29/15 10:35 AM) UA Ketones Negative [Negative] (11/29/15 10:35 AM) UA Urobilinogen 0.2 mg/dL [<=1.0 mg/dL] (11/29/15 10:35 AM) UA Bili [Negative] Negative (11/29/15 10:35 AM) UA Blood [Negative] Negative (11/29/15 10:35 AM) UA Spec Grav 1.025 [1.003-1.030] (11/29/15 10:35 AM) Type Clean Catch (11/29/15 10:35 AM) UA WBC [0-4] 5-10 1 *ABN* (11/29/15 10:35 AM) UA RBC [0-2] 2-5 (11/29/15 10:35 AM) Epithelial Cells 20-50 *ABN* (11/29/15 10:35 AM) UA Bacteria Moderate *ABN* (11/29/15 10:35 AM) UA Mucous Present (11/29/15 10:35 AM) 1Result Comment: WBC clumps noted Immunizations Vaccine Date Refusal Reason influenza virus vaccine, inactivated 10/31/15 Procedures Procedure Date Related Diagnosis Body Site Pap Smear1 07/23/06 1See Conversion Document. Social History Social History Type Response Smoking Status Current some day smoker; Type: Cigarettes; Tobacco use per day: Less than Pack Assessment and Plan No data available for this section
--- OUTSIDE RECORDS SUMMARY | 2016-07-01 21:38 | XMS REPORT | Continuity of Care Document ---
Author Author [facility] Organization [facility] Address Unknown Phone Unavailable Allergies Active Description Code Type Severity Reaction Onset Reported/Identified Relationship to Patient Clinical Status Yes No Known Allergies Drug Allergy N/A N/A 09/13/2012 Yes No Known Drug Allergies Drug Allergy N/A N/A 09/13/2012 Yes No Known Food Allergies Food Allergy N/A N/A 09/13/2012 Medications Problems Date Dx Coded Attending Type Code Diagnosis Diagnosed By 09/13/2012 Adrián Amaro MD Final 305.1 TOBACCO USE DISORDER 09/13/2012 Adrián Amaro MD Final 590.80 PYELONEPHRITIS NOS 09/13/2012 Adrián Amaro MD Admitting 789.09 ABDOMINAL PAIN-SITE NEC Procedures Results Encounters ACCT No. Visit Date/Time Discharge Status Pt. Type Provider Facility Loc./Unit Complaint [id number] 09/13/2012 11:27:00 2012 13:20:00 DIS Emergency Adrián Amaro MD [facility] on [facility]
--- OUTSIDE RECORDS SUMMARY | 2016-07-01 21:38 | XMS REPORT | Referral Summary ---
Author Author [facility] Organization [facility] Address Unknown Phone Unavailable Care Team Providers Care Lace Mender Name Role Phone George Degroot Primary Care Physician [phone] Encounter VC Date(s): 12/25/15 - 12/25/15 [facility] [address] [place] [address] [place] [address] Discharge Diagnosis: Lower urinary tract symptoms Discharge Disposition: 01-Home or Self Care Attending Physician: Jaimie Teague MD Admitting Physician: Jaimie Teague MD Vital Signs Most recent to 1 oldest [Reference Range]: Blood Pressure 120/72 mmHg [90-140/60-90 mmHg] (12/25/15 10:38 AM) Problem List Condition Effective Dates Status [...] TWICE A DAY, # 30 tabs, eRx: [facility] #[id number], TAKE ONE TABLET BY MOUTH TWICE A DAY Start Date: 12/10/15 Status: Ordered CeleXA 20 mg oral tablet 40 mg 2 tabs, Oral, Daily, 1 tab daily for 1 week then increase to 2 tabs daily , # 180 tabs, 1 Refill(s), Pharmacy: [facility] #[id number], 2 tabs Oral Daily ,x90 days,Instr:1 tab daily for 1 week then increase to 2 tabs daily Start Date: 03/14/15 Stop Date: 7/26/16 Status: Ordered Excedrin Extra Strength 1 tabs, Oral, q6hr, Pain, 0 Refill(s) Start Date: 07/28/13 Status: Ordered Tylenol Extra Strength 500 mg, Oral, q6hr, as needed for pain, 0 Refill(s) Start Date: 07/28/13 Status: Ordered Results Urinalysis Most recent to 1 oldest [Reference Range]: UA WBC [0-4] 5-10 *ABN* (12/25/15 11:15 AM) UA RBC [0-4] 0-4 (12/25/15 11:15 AM) Epithelial Cells 2-5 (12/25/15 11:15 AM) UA Hyal Cast [0-3] 1-3 (12/25/15 11:15 AM) Immunizations Vaccine Date Refusal Reason influenza virus vaccine, inactivated 10/31/15 Procedures Procedure Date Related Diagnosis Body Site Pap Smear1 07/23/06 1See Conversion Document. Social History Social History Type Response Smoking Status Current some day smoker; Type: Cigarettes; Tobacco use per day: Less than Pack Assessment and Plan Extracted from: Title: Office Visit Note Author: Jiamie Teague MD Date: 12/25/15 Assessment/Plan 30 yo F with urinary cramping during voiding. 1.Lower urinary tract symptoms Unclear if this is truely overactive bladder as she does not have urinary urgency during the day. Advised diet modification with avoidance of caffeinated drinks. Advised to stop smoking. Will send UA, cytology and culture. Will start PFPT. RTC in 3 months.
--- OUTSIDE RECORDS SUMMARY | 2016-07-01 21:38 | XMS REPORT | Referral Summary ---
Author Author [facility] Organization [facility] Address Unknown Phone Unavailable Care Team Providers Care Sintering Press Operator Name Role Phone George Degroot Primary Care Physician [phone] Encounter VC Date(s): 02/20/16 - 02/20/16 [facility], Family [address] [place] [address] Discharge Diagnosis: Nasopharyngitis Discharge Disposition: 01-Home or Self Care Attending Physician: George Degroot DO Admitting Physician: George Degroot DO Vital Signs Most recent to 1 oldest [Reference Range]: Temperature Tympanic 37.6 degC [36.6-38.1 degC] (02/20/16 1:50 PM) Peripheral Pulse 84 bpm Rate [60-100 bpm] (02/20/16 1:50 PM) Respiratory Rate 18 br/min [14-20 br/min] (02/20/16 1:50 PM) Blood Pressure 108/70 mmHg [90-140/60-90 mmHg] (02/20/16 1:50 PM) SpO2 96 % (02/20/16 1:50 PM) Problem List Condition Effective Dates Status Health Status Informant Anxiety(Confirmed) Resolved Pap 07/23/06 Active Smear(Confirmed)1 Carpal tunnel Active syndrome(Confirmed) Depression(Confirmed Resolved ) Gall bladder Resolved disease(Confirmed) High Resolved cholesterol(Confirme d) Irritable bowel Resolved disease(Confirmed) Migraine Resolved headache(Confirmed) Obesity(Confirmed) Active patient 1See Conversion Document Allergies, Adverse Reactions, Alerts No Known Medication Allergies Medications CeleXA 20 mg oral tablet 40 mg 2 tabs, Oral, Daily, 1 tab daily for 1 week then increase to 2 tabs daily , # 180 tabs, 1 Refill(s), Pharmacy: [facility] #[id number], 2 tabs Oral Daily ,x90 days,Instr:1 tab daily for 1 week then increase to 2 tabs daily Start Date: 03/14/15 Stop Date: 09/10/15 Status: Ordered Chantix Starter Pack 0.5 mg-1 mg oral tablet 1 tabs, Oral, BID, as directed on package labeling, # 53 tabs, 1 Refill(s), Pharmacy: [facility] #[id number] Start Date: 01/30/16 Status: Ordered Excedrin Extra Strength 1 tabs, Oral, q6hr, Pain, 0 Refill(s) Start Date: 07/28/13 Status: Ordered Tessalon 200 mg oral capsule 200 mg 1 caps, Oral, TID, X 10 days, # 30 caps, 0 Refill(s), Pharmacy: [facility] #[id number], 1 caps Oral TID,x10 days Start Date: [...] Extracted from: Title: Office Visit Note Author: George Degroot DO Date: 02/20/16 Assessment/Plan Nasopharyngitis 1. Nasal swab was negative for influenza. 2. Clinical finding consistent with viral upper respiratory tract infection. 3. Tessalon Perles, one tablet every 8 hours as needed for coughing. 4. Follow-up for worsening presentation. Ordered: benzonatate, 200 mg 1 caps, Oral, TID, X 10 days, # 30 caps, 0 Refill(s), Pharmacy: [facility] #[id number], 1 caps Oral TID,x10 days Office Visit Level 3 Est [id number]
[2016-07-01 22:19] VITALS: Ht 151.8 cm; Wt 92.4 kg
--- OUTSIDE RECORDS SUMMARY | 2016-07-02 00:18 | XMS REPORT | Continuity of Care Document ---
Author Author [facility] Organization [facility] Address Unknown Phone Unavailable Care Team Providers Care Senior Software Developer Name Role Phone GRIS BURROUGHS MD Primary Care Physician [phone] Insurance Providers Payer Name Policy Number Subscriber Name Relationship [facility] [id number] Romero Springer 18 Self Advance Directives Directive [...] F (96.8 - 99.1) Temperature (Calculated Celsius) 36.69176 degrees C (36.0 - 37.3) Temperature Source [...] Report May 09, 2013 3:07pm [facility] [id number] - Lipase May 24, 2013 10:45pm 147 [...] 24, 2013 10:45pm 7.1 % N 0-9.0 PE-Vpa-O-Type Natriuretic Peptide August 02, 2011 5:04am 42 [...] Has specimen been collected/obtained? Y Urine Specific [place] May 24, 2013 11:15pm 1.010 L - [...] MD Encounters Encounter Location Date/Time Registered Clinic [facility] 09/20/13 9:28am
--- OUTSIDE RECORDS SUMMARY | 2016-07-02 00:18 | XMS REPORT ---
Author Author [facility] - Organization Unknown Address Unknown Phone [...] ) Protein Trace A (Negative ) Specific [place] 1.015 (1.003-1.030 ) Collection Type: Clean Catch Urobilinogen Negative mg/dL (-<1.0 mg/dL) Bacteria Moderate A RBC 5-10 /HPF A (0-2 /HPF) WBC >50 /HPF A (0-4 /HPF)
--- OUTSIDE RECORDS SUMMARY | 2016-07-02 00:18 | XMS REPORT | Continuity of Care Document ---
Author Author [facility] Organization [facility] Address Unknown Phone Unavailable Allergies Active Description Code Type Severity Reaction Onset Reported/Identified Relationship to Patient Clinical Status Yes No Known Allergies Drug Allergy N/A N/A 09/13/2012 Yes No Known Drug Allergies Drug Allergy N/A N/A 09/13/2012 Yes No Known Food Allergies Food Allergy N/A N/A 09/13/2012 Medications Problems Date Dx Coded Attending Type Code Diagnosis Diagnosed By 09/13/2012 Adrián Amaor MD Final 305.1 TOBACCO USE DISORDER 09/13/2012 Adrián Amaro MD Final 590.80 PYELONEPHRITIS NOS 09/13/2012 Adrián Amaro MD Admitting 789.09 ABDOMINAL PAIN-SITE NEC Procedures Results Encounters ACCT No. Visit Date/Time Discharge Status Pt. Type Provider Facility Loc./Unit Complaint [id number] 09/13/2012 11:27:00 2012 13:20:00 DIS Emergency Adrián Amaro MD [facility] on [facility]
--- NOTE | 2016-07-02 00:20 | ERPDOC ---
Departure Disposition Decision Date: July 02, 2016 Disposition Decision Time: 01:05 Disposition: 01 DISCHARGED HOME, SELF-CARE Impression Impression Impression: Primary Impression: URI (upper respiratory infection) URI type: unspecified viral URI Qualified Codes: B97.89 - Other viral agents as the cause of diseases classified elsewhere; J06.9 - Acute upper respiratory infection, unspecified Severity: Moderate Condition: Improved Seen By: Physician only Referrals: SHASHANK JAMISON DO (PCP) 1 Week TD ROBERTS DO (Family) Patient Instructions: Upper Respiratory Infection (ED) Problems/Meds/Labs Reviewed?: Yes Medications reviewed and manag: Yes Additional Instructions: You have a viral respiratory infection (a cold). Continue using the nyquil/ dayquil. Use the afrin as needed to help with your nose symptoms. Do not use the afrin for more than 3 days. Follow up with your doctor. Follow up care ordered?: Yes Mental Status: Alert, Oriented HPI - Cough/URI General Chief Complaint: Cough,Fever,Flu,URI Stated Complaint: DIFF BREATHING,COUGH, SORE THROAT Time Seen by Provider: 00:06 Source: patient Exam Limitations: no limitations HPI - Cough/URI Initial Comments 31yo woman presents to the ER with 3 days of URI sx. Allergies: Coded Allergies: No Known Drug Allergies (Verified Allergy, Unknown, 07/01/16) Past History Past Medical History Respiratory: asthma Psychological: depression Surgical History General: gallbladder, other Family History Family PMH: FOUND: other Vaccines Hx Influenza Vaccination: Yes (NOV 2015) Hx Pneumococcal Vaccination: No Social History Does patient use chewing tobac: No Second Hand Exposure: No Substance Use Type: does not use Sexuality: male partner Physical Exam General Vitals and Pain First Documented Vital Signs Date Time Temp Pulse Resp B/P Pulse Ox O2 Delivery O2 Flow Rate FiO2 07/01/16 22:19 98.4 81 18 159/75 99 Room Air Weight: Kilograms: 92.400 Height (feet): 4 Height (inches): 11.75 Triage Pain Scale: Progress Results/Orders Orders Procedure Category Date Status Time Oxymetazoline Nasal PHA 07/02/16 Complete [place] (Afrin Nasal S 00:30 Medications Current ED Medications Oxymetazoline HCl (Afrin Nasal [place]) 2 spray O ONCE EA NOSTRIL Last administered on 07/02/16t 00:27; Start 07/02/16 at 00:30; Stop 07/02/16 at 00:31 ; Status DC Progress Progress Pt improved with PN afrin. Discussed appropriate use of med. Dx, prognosis, tx, and f/u with pt, who voiced understanding. F/u with PCM. NALLELY ZHENG DO July 02, 2016 00:20
[2016-07-02] MEDS ORDERED: OXYMETAZOLINE 0.05% NASAL SPRAY 15 ML EA NOSTRIL ONE (00:30)
[2016-07-02 01:09] VITALS: BP 154/86; PULSE 75; RESP 18; TEMP 98.4; O2SAT 98
== END 2016-07-02 01:09 | disposition home or self-care (01) ==
LOC: ED 21:33
DX: J06.9 Acute upper respiratory infection, unspecified (principal); B97.89 Other viral agents as the cause of diseases classified elsewhere